=== PATIENT | male | born 1995 | race Caucasian/White ===

== ENCOUNTER 2019-01-13 14:33 | Emergency (ER) | payer MEDICAID ==
[~2019-01-13] VITALS: Ht 177.8 cm; Wt 90.9 kg
[2019-01-13] MEDS ORDERED: IBUPROFEN 600 MG TABLET PO ONE (16:15)
[2019-01-13] MEDS ORDERED: BACITRACIN 0.9 GM PACKET OINTMENT TP ONE (18:15)
[2019-01-13 18:50] VITALS: BP 124/68
== END 2019-01-13 18:56 | disposition home or self-care (01) ==
LOC: EMS 14:37
DX: S02.2XXA Fracture of nasal bones, initial encounter for closed fracture (principal); S05.11XA Contusion of eyeball and orbital tissues, right eye, initial encounter; S60.512A Abrasion of left hand, initial encounter; S60.511A Abrasion of right hand, initial encounter; F12.90 Cannabis use, unspecified, uncomplicated; V00.131A Fall from skateboard, initial encounter; Y93.51 Activity, roller skating (inline) and skateboarding; Y92.89 Other specified places as the place of occurrence of the external cause; Y99.8 Other external cause status
CPT/HCPCS: 70450; 70486